=== PATIENT | male | born 1940 | race African-American/Black ===

== ENCOUNTER 2021-02-26 09:22 | Observation (INO) | payer OTHER ==
[2021-02-22 09:16] LABS: BASOPHILS # (AUTO) 0.1 (0.0-0.1); BASOPHILS % 0.9 % (0.0-1.0); EOSINOPHILS # (AUTO) 0.3 (0.0-0.4); EOSINOPHILS % 4.7 % (0.0-6.0); HEMATOCRIT 42.5 % (38.2-49.6); HEMOGLOBIN 13.6 g/dL (14.0-18.0); LYMPHOCYTES # (AUTO) 3.6 (1.0-3.2); LYMPHOCYTES % 53.5 % (18.0-39.1); MEAN CORPUSCULAR HEMOGLOBIN 27.4 pg (28-32); MEAN CORPUSCULAR VOLUME 85.7 fL (81-99); MONOCYTES # (AUTO) 0.4 (0.2-0.8); MONOCYTES % 6.5 % (4.4-11.3); NEUTROPHILS # (AUTO) 2.3 (2.1-6.9); NEUTROPHILS % 34.2 % (38.7-80.0); PLATELET COUNT 229 x10e3/uL (140-360); RED BLOOD COUNT 4.96 x10e6/uL (4.3-5.7); RED CELL DISTRIBUTION WIDTH 14.7 % (11.7-14.4)
[2021-02-22 09:48] LABS: ANION GAP 12.4 mmol/L (8-16); CALCIUM 9.3 mg/dL (8.4-10.2); CREATININE, SERUM 1.22 mg/dL (0.72-1.25); POTASSIUM 4.4 mmol/L (3.5-5.1)
[~2021-02-26] VITALS: Ht 180.3 cm; Wt 88.9 kg
[~2021-02-26 09:22] MED LIST: AMLODIPINE BESY10 MG PO; ATORVASTATIN CA40 MG PO; CELEBREX200 MG PO; GLIPIZIDE10 MG PO; LISINOPRIL10 MG PO; MELOXICAM7.5 MG PO; METFORMIN HCL1000 MG PO; ROPIVACAINE 246.25 MG, EPINEPHRINE HCL 1:1000 1ML 0.5 MG, CLONIDINE HCL 0.08 MG, KETORO... INJ ONE
[2021-02-26] MEDS ORDERED: BUPIVACAINE 7.5MG/ML /DEXTROSE 82.5MG/ML 2 ML AMP INJ ONE (10:12)
[2021-02-26] MEDS ORDERED: SODIUM CHLORIDE 0.9% 500ML 500 ML ONE (10:13)
[2021-02-26] MEDS ORDERED: Vancomycin IV 1,000 MG ONE (10:13)
[2021-02-26] MEDS ORDERED: TRANEXAMIC ACID 1,000 MG/10 ML ML ONE (10:13)
[2021-02-26] MEDS ORDERED: DEXAMETHASONE SOD PHOS 10 MG/1 ML VIAL ONE (10:14)
[2021-02-26] MEDS ORDERED: SODIUM CHLORIDE 0.9% 50ML 100 ML ONE (10:14)
[2021-02-26] MEDS ORDERED: GABAPENTIN 300 MG CAP ONE (10:14)
[2021-02-26] MEDS ORDERED: CELECOXIB 200 MG CAP ONE (10:14)
[2021-02-26] MEDS ORDERED: ZOLPIDEM TARTRATE 5 MG TAB PO PRN (11:45)
[2021-02-26] MEDS ORDERED: ONDANSETRON HCL INJ 2MG/ML 2ML 2 MG/ML VIAL IV PRN (11:45)
[2021-02-26] MEDS ORDERED: DOCUSATE SODIUM 100 MG CAP PO PRN (11:45)
[2021-02-26] MEDS ORDERED: ACETAMINOPHEN 650 MG SUPP PR PRN (11:45)
[2021-02-26] MEDS ORDERED: KETOROLAC TROMETHAMINE 30 MG/ML VIAL IV PRN (11:45)
[2021-02-26] MEDS ORDERED: DIPHENHYDRAMINE HCL INJ 50 MG/ML VIAL IV PRN (11:45)
[2021-02-26] MEDS: SODIUM CHLORIDE 0.9% 1000ML 1,000 ML IV SCH ×2 (13:28→21:45)
[2021-02-26 13:32] VITALS: BP 112/65
[2021-02-26 13:49] LABS: BASOPHILS % 0.3 % (0.0-1.0); EOSINOPHILS % 0.5 % (0.0-6.0); HEMATOCRIT 38.1 % (38.2-49.6); HEMOGLOBIN 11.9 g/dL (14.0-18.0); LYMPHOCYTES % 12.9 % (18.0-39.1); MEAN CORPUSCULAR HEMOGLOBIN 27.2 pg (28-32); MEAN CORPUSCULAR HGB CONC 31.2 g/dL (31-35); MEAN CORPUSCULAR VOLUME 87.2 fL (81-99); MONOCYTES # (AUTO) 0.1 (0.2-0.8); MONOCYTES % 1.5 % (4.4-11.3); NEUTROPHILS # (AUTO) 6.6 (2.1-6.9); NEUTROPHILS % 84.4 % (38.7-80.0); PLATELET COUNT 185 x10e3/uL (140-360); RED BLOOD COUNT 4.37 x10e6/uL (4.3-5.7); RED CELL DISTRIBUTION WIDTH 14.6 % (11.7-14.4)
[2021-02-26 14:14] LABS: ANION GAP 12.7 mmol/L (8-16); CALCIUM 8.6 mg/dL (8.4-10.2); CREATININE, SERUM 1.21 mg/dL (0.72-1.25); POTASSIUM 4.7 mmol/L (3.5-5.1)
[2021-02-26] MEDS: HYDROCODONE/APAP 5MG-325MG TAB PO PRN (15:34)
[2021-02-26 16:23] VITALS: BP 111/67
[2021-02-26] MEDS: ASPIRIN 325 MG TAB PO SCH (16:38)
[2021-02-26] MEDS: CELECOXIB 200 MG CAP PO SCH (16:38)
[2021-02-26] MEDS: Cefazolin 1 GM in SODIUM CHLORIDE 0.9% 50ML 50 ML IV SCH (17:01)
[2021-02-26] MEDS ORDERED: EPHEDRINE SULFATE INJ 50 MG/ML VIAL ONE (19:09)
[2021-02-26] MEDS ORDERED: ONDANSETRON HCL INJ 2MG/ML 2ML 2 MG/ML VIAL ONE (19:09)
[2021-02-26] MEDS ORDERED: POVIDONE IODINE 0.05% 0.05 % ML PO ONE (19:09)
[2021-02-26] MEDS ORDERED: SEVOFLURANE INHAL SOLN 250 ML PEN BTL ONE (19:09)
[2021-02-26] MEDS ORDERED: PHENYLEPHRINE HCL 1% 10 MG/ML VIAL ONE (19:09)
[2021-02-26] MEDS ORDERED: ATROPINE SULFATE 1 MG/ML VIAL ONE (19:09)
[2021-02-26] MEDS ORDERED: PROPOFOL IV EMULSION 10 MG/ML 20 ML VIAL ONE (19:09)
[2021-02-26] MEDS ORDERED: LIDOCAINE HCL 2% LOCAL INJ 5 ML SDV VIAL INJ ONE (19:09)
[2021-02-26] MEDS ORDERED: DEXTROSE 50% SYRINGE 50 ML IV PRN (19:30)
[2021-02-26 19:33] VITALS: BP 124/73
[2021-02-26] MEDS: HYDROCODONE/APAP 7.5MG-325MG 1 EA TAB PO PRN (19:45)
[2021-02-26 20:50] VITALS: BP 124/73
[2021-02-26] MEDS: ATORVASTATIN 40 MG TAB PO SCH (21:27)
[2021-02-26] MEDS: INSULIN LISPRO 100 UNIT/1 ML 3ML VIAL SQ SCH (21:35)
[2021-02-26 23:51] VITALS: BP 136/68
[2021-02-27] VITALS (7 sets, daily range): BP systolic 128–146; BP diastolic 69–74
[2021-02-27] MEDS: Cefazolin 1 GM in SODIUM CHLORIDE 0.9% 50ML 50 ML IV SCH ×2 (02:25→09:00)
[2021-02-27 06:00] LABS: HEMATOCRIT 35.1 % (38.2-49.6); HEMOGLOBIN 11.5 g/dL (14.0-18.0)
[2021-02-27] MEDS: METFORMIN HCL 500 MG TAB CR PO SCH ×2 (07:30→16:03)
[2021-02-27] MEDS: INSULIN LISPRO 100 UNIT/1 ML 3ML VIAL SQ SCH ×4 (07:30→21:00)
[2021-02-27] MEDS: SODIUM CHLORIDE 0.9% 1000ML 1,000 ML IV SCH (07:45)
[2021-02-27] MEDS ORDERED: ONDANSETRON HCL 4 MG ORAL DISINTEGRATING TAB PO PRN (08:00)
[2021-02-27] MEDS: AMLODIPINE BESYLATE 10 MG TAB PO SCH (08:53)
[2021-02-27] MEDS: CELECOXIB 200 MG CAP PO SCH ×2 (08:53→16:01)
[2021-02-27] MEDS: ASPIRIN 325 MG TAB PO SCH ×2 (08:53→16:01)
[2021-02-27] MEDS: GLIPIZIDE 5 MG TAB PO SCH (08:53)
[2021-02-27] MEDS: HYDROCODONE/APAP 7.5MG-325MG 1 EA TAB PO PRN (09:03)
[2021-02-27] MEDS ORDERED: ACETAMINOPHEN 1000 MG/100 ML IV PRN (11:45)
[2021-02-27] MEDS: ATORVASTATIN 40 MG TAB PO SCH (21:03)
[2021-02-28 00:03] VITALS: BP 137/72
[2021-02-28] MEDS: HYDROCODONE/APAP 5MG-325MG TAB PO PRN (01:45)
[2021-02-28 05:24] VITALS: BP 135/73
[2021-02-28 05:38] LABS: HEMATOCRIT 33.6 % (38.2-49.6); HEMOGLOBIN 11.1 g/dL (14.0-18.0)
[2021-02-28] MEDS: INSULIN LISPRO 100 UNIT/1 ML 3ML VIAL SQ SCH ×3 (07:30→16:30)
[2021-02-28 07:36] VITALS: BP 132/73
[2021-02-28] MEDS: METFORMIN HCL 500 MG TAB CR PO SCH (07:50)
[2021-02-28] MEDS: GLIPIZIDE 5 MG TAB PO SCH (07:50)
[2021-02-28 08:12] VITALS: BP 132/73
[2021-02-28] MEDS: AMLODIPINE BESYLATE 10 MG TAB PO SCH (09:00)
[2021-02-28] MEDS: CELECOXIB 200 MG CAP PO SCH ×2 (09:00→17:00)
[2021-02-28] MEDS: ASPIRIN 325 MG TAB PO SCH ×2 (09:00→17:00)
[2021-02-28] MEDS: HYDROCODONE/APAP 7.5MG-325MG 1 EA TAB PO PRN (10:19)
[2021-02-28 11:10] VITALS: BP 139/63
[2021-02-28 14:58] VITALS: BP 129/69
== END 2021-02-28 17:35 | disposition home health service (06) ==
LOC: OR 09:22 → PACU V 11:41 → MED/SURG 13:00
PROVIDERS: ADMIT Specialist; ATTEND Specialist
DX: M16.12 Unilateral primary osteoarthritis, left hip (principal); E11.9 Type 2 diabetes mellitus without complications; I10 Essential (primary) hypertension; E78.00 Pure hypercholesterolemia, unspecified; Z79.84 Long term (current) use of oral hypoglycemic drugs; Z01.810 Encounter for preprocedural cardiovascular examination; Z01.812 Encounter for preprocedural laboratory examination; Z01.818 Encounter for other preprocedural examination
CPT/HCPCS: 27130; 36415 ×4; 71046; 72170; 80048 ×2; 82948 ×3; 85014 ×2; 85018 ×2; 85025 ×2; 86850; 86900; 93005; 96372; 97110; 97116 ×3; 97139 ×2; 97162; 97530 ×2; C1713 ×3; C1776 ×2; G0378 ×3; J0171; J0461; J0690 ×2; J1100; J1885; J2001; J2370; J2405; J2704; J2795; J3370; J7030; J7040; 86920